=== PATIENT | male | born 1955 | race Caucasian/White ===

== ENCOUNTER 2024-05-11 13:17 | Inpatient (IN) ==
[2024-05-11] MEDS ORDERED: IOPAMIDOL 100 ML BOTTLE IV ONE (13:18)
[2024-05-11] MEDS: HYDROmorphone 1 MG/ML SYRINGE IV ONE ×2 (14:04→15:52)
[2024-05-11] MEDS: ONDANSETRON 4 MG/2 ML VIAL IV ONE (14:05)
[2024-05-11 14:23] LABS: Basophils # (Auto) 0.03 K/mcL (0.00-0.30); Basophils % (Auto) 0.3 % (0.0-2.0); Eosinophils # (Auto) 0.02 K/mcL (0.00-0.70); Eosinophils % (Auto) 0.2 % (0.0-7.0); Hematocrit 53.6 % (40.1-51.0); Hemoglobin 17.6 g/dL (13.7-17.5); Lymphocytes # (Auto) 1.21 K/mcL (1.50-4.80); Lymphocytes % (Auto) 10.3 % (15.5-49.0); Mean Cell Volume 90.5 fL (80.0-100.0); Mean Corpuscular HGB Conc 32.8 g/dL (31.0-36.0); Mean Platelet Volume 9.8 fL (8.8-12.5); Monocytes # (Auto) 0.54 K/mcL (0.10-0.90); Monocytes % (Auto) 4.6 % (1.0-12.0); Neutrophils % (Auto) 84.2 % (38.0-78.0); Platelet Count 291 K/mcL (140-440); RBC 5.92 M/mcL (4.63-6.08); Red Cell Distribution Width 14.8 % (11.5-14.5); WBC 11.7 K/mcL (4.5-11.0)
[2024-05-11 14:36] LABS: ALT/SGPT 44 U/L (<40); AST/SGOT 35 U/L (<40); Albumin 4.3 gm/dL (3.2-5.2); Albumin/Globulin Ratio 1.3 (1.0-2.3); Alkaline Phosphatase 100 U/L (39-117); Bilirubin,Total 0.5 mg/dL (0.1-1.0); Blood Urea Nitrogen 37 mg/dL (8-23); Calcium 10.6 mg/dL (8.6-10.4); Carbon Dioxide 18 mmol/L (22-30); Chloride 100 mmol/L (96-108); Globulin 3.2 gm/dL (2.2-3.7); Glomerular Filtration Rate 52; Glucose 125 mg/dL (70-105); Potassium 4.6 mmol/L (3.3-5.1); Sodium 133 mmol/L (133-145)
[2024-05-11] MEDS: 0.9 % SODIUM CHLORIDE 1,000 ML IV ONE ×2 (15:16→15:54)
[2024-05-11] MEDS: PIPERACILLIN SODIUM/TAZOBACTAM 3.375 GM in DEXTROSE 5% IN WATER 50 ML IV ONE (15:49)
[2024-05-11] MEDS ORDERED: PROPOFOL 200 MG/20 ML VIAL IV ONE (15:53)
[2024-05-11] MEDS ORDERED: fentaNYL 100 MCG/2 ML VIAL ONE ×2 (15:53→18:33)
[2024-05-11] MEDS ORDERED: KETAMINE 50 MG/ML ML ONE (15:54)
[2024-05-11] MEDS ORDERED: ONDANSETRON 4 MG/2 ML VIAL ONE (15:55)
[2024-05-11] MEDS ORDERED: MAGNESIUM SULFATE 2 GM/50 ML BAG IV ONE (15:55)
[2024-05-11] MEDS ORDERED: ROCURONIUM 10 MG/ML ML IV ONE (15:55)
[2024-05-11] MEDS ORDERED: DEXAMETHASONE 10 MG/ML VIAL ONE (15:55)
[2024-05-11] MEDS ORDERED: LIDOCAINE 2% PF 5 ML VIAL ONE (15:55)
[2024-05-11] MEDS ORDERED: ePHEDrine 50 MG/5 ML SYRINGE (ANEST) IV ONE (17:02)
[2024-05-11] MEDS ORDERED: SUGAMMADEX SODIUM 200 MG/2 ML VIAL IV ONE (18:03)
[2024-05-11] MEDS ORDERED: IPRATROPIUM/ALBUTEROL 3 ML AMPUL.NEB NEB PRN (18:07)
[2024-05-11] MEDS ORDERED: LACTATED RINGERS 250 ML IV PRN (18:07)
[2024-05-11] MEDS ORDERED: HYDROmorphone 0.5 MG/0.5 ML SYRINGE IV PRN (18:07)
[2024-05-11] MEDS ORDERED: MEPERIDINE 25 MG/ML VIAL IV PRN (18:12)
[2024-05-11] MEDS ORDERED: NALOXONE HCL 0.4 MG/ML VIAL IV PRN (18:12)
[2024-05-11] MEDS ORDERED: diphenhydrAMINE 50 MG/ML VIAL IV PRN (18:12)
[2024-05-11] MEDS: BACITRACIN TOPICAL OINT 15 GM TUBE TOPICAL ONE (18:30)
[2024-05-11] MEDS: fentaNYL 100 MCG/2 ML VIAL IV PRN (19:19)
[2024-05-11] MEDS: ONDANSETRON 4 MG/2 ML VIAL IV PRN (19:20)
[2024-05-11] MEDS ORDERED: ACETAMINOPHEN 325 MG TABLET PO PRN (19:33)
[2024-05-11] MEDS ORDERED: ZOLPIDEM 5 MG TABLET PO PRN (19:33)
[2024-05-11] MEDS ORDERED: SENNOSIDES 1 TABLET PO PRN (19:33)
[2024-05-11] MEDS ORDERED: MAGNESIUM HYDROXIDE 30 ML ORAL.SUSP PO PRN (19:33)
[2024-05-11] MEDS ORDERED: ONDANSETRON 4 MG/2 ML VIAL IV PRN (19:33)
[2024-05-11] MEDS ORDERED: oxyCODONE IR 5 MG TABLET PO PRN (19:33)
[2024-05-11] MEDS: fentaNYL 100 MCG/2 ML VIAL ONE (19:44)
[2024-05-11] MEDS: ONDANSETRON 4 MG/2 ML VIAL ONE (19:45)
[2024-05-11] MEDS: HYDROmorphone 1 MG/ML SYRINGE IV PRN ×2 (19:47→21:13)
[2024-05-11] MEDS: LACTATED RINGERS 1,000 ML IV SCH ×2 (20:50→21:34)
[2024-05-11] MEDS: HYDROmorphone 1 MG/ML SYRINGE ONE (20:52)
[2024-05-11] MEDS: ACETAMINOPHEN 650 MG/65 ML BAG IV PRN (20:54)
[2024-05-11] MEDS: FAMOTIDINE/PF 20 MG/2 ML VIAL IV SCH (21:11)
[2024-05-11] MEDS: DEXTROSE 5%-LR 1,000 ML IV SCH (21:20)
[2024-05-11] MEDS: ACETAMINOPHEN 1,000 MG/100 ML BAG IV ONE (21:34)
[2024-05-11] MEDS: PIPERACILLIN SODIUM/TAZOBACTAM 4.5 GM in DEXTROSE 5% IN WATER 100 ML IV SCH (22:31)
[2024-05-11] MEDS: 0.9 % SODIUM CHLORIDE 10 ML SYRINGE IV SCH (23:44)
[2024-05-11] MEDS ORDERED: LORazepam 2 MG/ML VIAL IV PRN (23:50)
[2024-05-12] MEDS: LORazepam 2 MG/ML VIAL ONE (00:02)
[2024-05-12 06:09] LABS: Basophils # (Auto) 0.01 K/mcL (0.00-0.30); Basophils % (Auto) 0.1 % (0.0-2.0); Eosinophils # (Auto) 0 K/mcL (0.00-0.70); Eosinophils % (Auto) 0 % (0.0-7.0); Hematocrit 46.9 % (40.1-51.0); Hemoglobin 15.1 g/dL (13.7-17.5); Lymphocytes # (Auto) 0.78 K/mcL (1.50-4.80); Lymphocytes % (Auto) 8.1 % (15.5-49.0); Mean Cell Volume 91.8 fL (80.0-100.0); Mean Corpuscular HGB Conc 32.2 g/dL (31.0-36.0); Mean Platelet Volume 9.7 fL (8.8-12.5); Monocytes # (Auto) 0.73 K/mcL (0.10-0.90); Monocytes % (Auto) 7.5 % (1.0-12.0); Neutrophils % (Auto) 84.2 % (38.0-78.0); Platelet Count 229 K/mcL (140-440); RBC 5.11 M/mcL (4.63-6.08); Red Cell Distribution Width 15.1 % (11.5-14.5); WBC 9.7 K/mcL (4.5-11.0)
[2024-05-12 06:22] LABS: Blood Urea Nitrogen 32 mg/dL (8-23); Calcium 8.3 mg/dL (8.6-10.4); Carbon Dioxide 20 mmol/L (22-30); Chloride 103 mmol/L (96-108); Glomerular Filtration Rate 69; Glucose 132 mg/dL (70-105); Potassium 4.5 mmol/L (3.3-5.1); Sodium 134 mmol/L (133-145)
[2024-05-12] MEDS: KETOROLAC EYE OP SCH (09:01)
[2024-05-12] MEDS: MIRTAZAPINE 15 MG TABLET PO SCH (09:02)
[2024-05-13 06:07] LABS: Basophils # (Auto) 0.05 K/mcL (0.00-0.30); Basophils % (Auto) 0.7 % (0.0-2.0); Eosinophils # (Auto) 0.15 K/mcL (0.00-0.70); Eosinophils % (Auto) 2.1 % (0.0-7.0); Hemoglobin 13.9 g/dL (13.7-17.5); Lymphocytes # (Auto) 1.23 K/mcL (1.50-4.80); Lymphocytes % (Auto) 17.1 % (15.5-49.0); Mean Cell Volume 92.1 fL (80.0-100.0); Mean Corpuscular HGB Conc 32.3 g/dL (31.0-36.0); Mean Platelet Volume 10.1 fL (8.8-12.5); Monocytes # (Auto) 0.69 K/mcL (0.10-0.90); Monocytes % (Auto) 9.6 % (1.0-12.0); Neutrophils % (Auto) 70.2 % (38.0-78.0); Platelet Count 190 K/mcL (140-440); RBC 4.67 M/mcL (4.63-6.08); Red Cell Distribution Width 15.4 % (11.5-14.5); WBC 7.2 K/mcL (4.5-11.0)
[2024-05-13 06:43] LABS: Blood Urea Nitrogen 16 mg/dL (8-23); Calcium 7.8 mg/dL (8.6-10.4); Carbon Dioxide 23 mmol/L (22-30); Chloride 107 mmol/L (96-108); Glomerular Filtration Rate 92; Glucose 102 mg/dL (70-105); Potassium 3.8 mmol/L (3.3-5.1); Sodium 138 mmol/L (133-145)
[2024-05-13] MEDS ORDERED: IOPAMIDOL 100 ML BOTTLE IV ONE (10:43)
[2024-05-13] MEDS: HYDROmorphone 1 MG/ML SYRINGE IV PRN (13:06)
[2024-05-13] MEDS: DEXTROSE 5%-NS 1,000 ML IV SCH (13:07)
[2024-05-13] MEDS: ACETAMINOPHEN 1,000 MG/100 ML BAG IV SCH (13:27)
[2024-05-13] MEDS ORDERED: LORazepam 2 MG/ML VIAL IV PRN (15:43)
[2024-05-13] MEDS: HEPARIN 5,000 UNIT/ML VIAL SQ SCH (21:30)
[2024-05-14 06:11] LABS: Basophils # (Auto) 0.04 K/mcL (0.00-0.30); Basophils % (Auto) 0.6 % (0.0-2.0); Eosinophils # (Auto) 0.17 K/mcL (0.00-0.70); Eosinophils % (Auto) 2.5 % (0.0-7.0); Hematocrit 45.6 % (40.1-51.0); Hemoglobin 14.9 g/dL (13.7-17.5); Lymphocytes # (Auto) 0.83 K/mcL (1.50-4.80); Lymphocytes % (Auto) 12.4 % (15.5-49.0); Mean Cell Volume 91.4 fL (80.0-100.0); Mean Corpuscular HGB Conc 32.7 g/dL (31.0-36.0); Mean Platelet Volume 9.6 fL (8.8-12.5); Neutrophils % (Auto) 75.4 % (38.0-78.0); Platelet Count 194 K/mcL (140-440); RBC 4.99 M/mcL (4.63-6.08); Red Cell Distribution Width 14.8 % (11.5-14.5); WBC 6.7 K/mcL (4.5-11.0)
[2024-05-14 06:36] LABS: Blood Urea Nitrogen 8 mg/dL (8-23); Calcium 7.8 mg/dL (8.6-10.4); Carbon Dioxide 22 mmol/L (22-30); Chloride 105 mmol/L (96-108); Glomerular Filtration Rate 92; Glucose 98 mg/dL (70-105); Potassium 3.4 mmol/L (3.3-5.1); Sodium 137 mmol/L (133-145)
[2024-05-14] MEDS: KETOROLAC 15 MG/ML VIAL IV SCH (13:51)
[2024-05-14] MEDS: MIRTAZAPINE 15 MG TABLET PO SCH (21:19)
[2024-05-15 06:15] LABS: Basophils # (Auto) 0.06 K/mcL (0.00-0.30); Basophils % (Auto) 0.9 % (0.0-2.0); Eosinophils # (Auto) 0.25 K/mcL (0.00-0.70); Eosinophils % (Auto) 3.8 % (0.0-7.0); Hematocrit 45.7 % (40.1-51.0); Hemoglobin 14.9 g/dL (13.7-17.5); Lymphocytes # (Auto) 1.11 K/mcL (1.50-4.80); Lymphocytes % (Auto) 16.8 % (15.5-49.0); Mean Corpuscular HGB Conc 32.6 g/dL (31.0-36.0); Mean Platelet Volume 10.1 fL (8.8-12.5); Monocytes # (Auto) 0.55 K/mcL (0.10-0.90); Monocytes % (Auto) 8.3 % (1.0-12.0); Neutrophils % (Auto) 69.7 % (38.0-78.0); Platelet Count 215 K/mcL (140-440); RBC 5.02 M/mcL (4.63-6.08); Red Cell Distribution Width 14.5 % (11.5-14.5); WBC 6.6 K/mcL (4.5-11.0)
[2024-05-15 06:28] LABS: ALT/SGPT 18 U/L (<40); AST/SGOT 29 U/L (<40); Albumin 3.1 gm/dL (3.2-5.2); Albumin/Globulin Ratio 1.3 (1.0-2.3); Alkaline Phosphatase 57 U/L (39-117); Bilirubin,Total 0.5 mg/dL (0.1-1.0); Blood Urea Nitrogen 8 mg/dL (8-23); Calcium 7.9 mg/dL (8.6-10.4); Carbon Dioxide 21 mmol/L (22-30); Chloride 111 mmol/L (96-108); Globulin 2.3 gm/dL (2.2-3.7); Glomerular Filtration Rate 92; Glucose 97 mg/dL (70-105); Potassium 3.4 mmol/L (3.3-5.1); Sodium 141 mmol/L (133-145)
[2024-05-15] MEDS: PANTOPRAZOLE 40 MG VIAL IV SCH (08:57)
[2024-05-15] MEDS: SERTRALINE 50 MG TABLET PO SCH (21:00)
[2024-05-16 06:39] LABS: Basophils # (Auto) 0.07 K/mcL (0.00-0.30); Basophils % (Auto) 1.1 % (0.0-2.0); Eosinophils # (Auto) 0.32 K/mcL (0.00-0.70); Eosinophils % (Auto) 4.9 % (0.0-7.0); Hematocrit 41.8 % (40.1-51.0); Lymphocytes # (Auto) 1.17 K/mcL (1.50-4.80); Lymphocytes % (Auto) 17.9 % (15.5-49.0); Mean Cell Volume 89.5 fL (80.0-100.0); Mean Corpuscular HGB Conc 33.5 g/dL (31.0-36.0); Mean Platelet Volume 9.7 fL (8.8-12.5); Monocytes # (Auto) 0.61 K/mcL (0.10-0.90); Monocytes % (Auto) 9.4 % (1.0-12.0); Neutrophils % (Auto) 66.4 % (38.0-78.0); Platelet Count 231 K/mcL (140-440); RBC 4.67 M/mcL (4.63-6.08); Red Cell Distribution Width 14.5 % (11.5-14.5); WBC 6.5 K/mcL (4.5-11.0)
[2024-05-16 06:57] LABS: ALT/SGPT 20 U/L (<40); AST/SGOT 37 U/L (<40); Albumin/Globulin Ratio 1.6 (1.0-2.3); Alkaline Phosphatase 53 U/L (39-117); Bilirubin,Total 0.5 mg/dL (0.1-1.0); Blood Urea Nitrogen 8 mg/dL (8-23); Calcium 7.6 mg/dL (8.6-10.4); Carbon Dioxide 18 mmol/L (22-30); Chloride 112 mmol/L (96-108); Globulin 1.9 gm/dL (2.2-3.7); Glomerular Filtration Rate 92; Glucose 94 mg/dL (70-105); Potassium 3.3 mmol/L (3.3-5.1); Sodium 140 mmol/L (133-145)
[2024-05-16] MEDS: DEXTROSE 5%-NS 1,000 ML IV SCH (08:32)
[2024-05-16] MEDS: METOPROLOL SUCCINATE 50 MG TAB.XL.24H PO SCH (08:33)
[2024-05-16] MEDS: PANTOPRAZOLE 40 MG TABLET PO ONE (08:33)
[2024-05-16] MEDS: LOSARTAN 50 MG TABLET PO SCH (08:33)
[2024-05-16] MEDS: VITAMIN D3 125 MCG TABLET PO SCH (08:33)
[2024-05-16] MEDS: PANTOPRAZOLE 40 MG TABLET PO SCH (17:45)
[2024-05-17 06:05] LABS: Basophils # (Auto) 0.06 K/mcL (0.00-0.30); Basophils % (Auto) 0.8 % (0.0-2.0); Eosinophils # (Auto) 0.45 K/mcL (0.00-0.70); Hematocrit 46.2 % (40.1-51.0); Hemoglobin 15.2 g/dL (13.7-17.5); Lymphocytes # (Auto) 1.68 K/mcL (1.50-4.80); Lymphocytes % (Auto) 22.5 % (15.5-49.0); Mean Cell Volume 91.1 fL (80.0-100.0); Mean Corpuscular HGB Conc 32.9 g/dL (31.0-36.0); Mean Platelet Volume 9.4 fL (8.8-12.5); Monocytes # (Auto) 0.73 K/mcL (0.10-0.90); Monocytes % (Auto) 9.8 % (1.0-12.0); Neutrophils % (Auto) 60.4 % (38.0-78.0); Platelet Count 260 K/mcL (140-440); RBC 5.07 M/mcL (4.63-6.08); WBC 7.5 K/mcL (4.5-11.0)
[2024-05-17 06:43] LABS: ALT/SGPT 35 U/L (<40); AST/SGOT 65 U/L (<40); Albumin 3.3 gm/dL (3.2-5.2); Albumin/Globulin Ratio 1.6 (1.0-2.3); Alkaline Phosphatase 60 U/L (39-117); Bilirubin,Total 0.5 mg/dL (0.1-1.0); Blood Urea Nitrogen 7 mg/dL (8-23); Calcium 8.1 mg/dL (8.6-10.4); Carbon Dioxide 19 mmol/L (22-30); Chloride 110 mmol/L (96-108); Globulin 2.1 gm/dL (2.2-3.7); Glomerular Filtration Rate 88; Glucose 87 mg/dL (70-105); Potassium 3.7 mmol/L (3.3-5.1); Sodium 138 mmol/L (133-145)
== END 2024-05-17 14:45 | disposition home or self-care (01) | DRG 336 ==
LOC: ED 13:17 → SUR 15:58 → MEDSUR 19:30
PROVIDERS: ADMIT Surgery Surgical Critical Care; ATTEND Internal Medicine